=== PATIENT | female | born 1990 | race Caucasian/White ===

== ENCOUNTER 2022-08-04 13:17 | Emergency (ER) | payer OTHER, SELFPAY ==
[2022-08-04 13:55] VITALS: BP 116/74; PULSE 74; RESP 18; TEMP 36.7; O2SAT 99; BMI 33.0
--- NOTE | 2022-08-04 13:55 | ED.GENADULT ---
HPI - General Adult General Chief complaint: Skin/Abscess/Foreign Body Stated complaint: Rash Time Seen by Provider: 08/04/22 14:00 Source: patient Mode of arrival: ambulatory Limitations: no limitations History of Present Illness HPI narrative: 31 yo female presents to the ER for evaluation of an itchy rash all over her body that she noticed this week. She presents with her mother who has had a similar rash for the last 3 weeks and it is self resolving. patient denies any new soaps, lotions, detergents. No fever, chills. No one else in the home has the rash besides her mother. she has not taken any medications or used any creams to the rash. complaint: rash Onset (ago): week(s) Quality: other (itching) Pain Consistency: constant Exacerbating factors: other (itching) Associated symptoms: denies other symptoms Treatments prior to arrival: none Related Data Previous Rx's Medication Instructions Recorded hydrocortisone 2.5 % topical 1 appl topical BID PRN itching 08/04/22 ointment #28.35 grams Allergies Allergy/AdvReac Type Severity Reaction Status Date / Time No Known Allergies Allergy Verified 08/04/22 14:01 Review of Systems Review of Systems: Yes all other systems are reviewed and are negative [facility] Social History Social History Advance Directives: No Advance Directives Information Provided: Yes Physical Exam ED Vital Signs: Vital Signs - 24 hr 08/04/22 13:55 Temperature 98.1 F Pulse Rate 74 Respiratory Rate 18 Blood Pressure 116/74 Pulse Oximetry 99 Oxygen Delivery Method Room Air BMI result Body Mass Index 33.0 Appearance: Alert. Oriented X3. No acute distress. HEENT: normal inspection CVS: Normal heart rate and rhythm. Pulses normal. Respiratory: No respiratory distress. Skin: Skin warm and dry. Normal skin color. Normal skin turgor. No significant rash seen, few small punctate, flat papular lesions 1mm on the LUE. Extremities: normal inspection x4, no joint swelling Neuro: Oriented X 3. No motor deficit. No sensory deficit. Course Course Course Narrative: RME - 31yo female presenting for rash that began 1 week ago on her arms, back, and trunk. States her mother has had a similar rash for 3 weeks which has been improving. Patient has not taken anything for the rash. Denies new lotions, creams, medications, detergents. Endorses pruritis, denies fever. Plan: d/c Medical Decision Making Medical Decision Making MDM Narrative: 31 yo female presenting with itchy rash on the body x1 week. Mother with similar rash that is self resolving. No notable rash on exam, a few excorations present. Will plan to start PRN benadryl and hydrocortisone ointment. Encouraged to refrain from itching and f/u PCP. Stable for d/c home. Differential Diagnosis Differential Diagnoses: The differential diagnosis associated with the presentation includes contact dermatitis, allergic dermatitis, eczema, bed bugs, anxiety Prescription Management I considered prescription management with: Other (hydrocortisone ointment) Critical Care Time Critical Care Time Critical Care Time: No Discharge Plan Discharge Clinical Impression: Dermatitis Patient Disposition: Home, Self-Care Instructions: Dermatitis (ED) Additional Instructions: Recommend 50mg of Benadryl every 6-8 hours as needed for itching Use the Hydrocortisone ointment as needed for itching. Follow up with your primary care doctor. Prescriptions: New hydrocortisone 2.5 % ointment 1 appl topical BID PRN (Reason: itching) Qty: 28.35 0RF Interventions: ED Discharge Assessment Last Done: 08/04/22 14:03 Discharge Date/Time: 08/04/22 14:08
== END 2022-08-04 14:08 | disposition home or self-care (01) ==
LOC: HO.ED 14:06
PROVIDERS: Emergency Provider Emergency Medicine
DX: L30.9 Dermatitis, unspecified (principal)
CPT/HCPCS: 99282; 99283

== ENCOUNTER 2023-02-20 10:40 | Emergency (ER) | payer OTHER, SELFPAY ==
[2023-02-20 11:06] VITALS: BP 122/79; PULSE 73; RESP 18; TEMP 36.8; O2SAT 97; BMI 36.8
--- NOTE | 2023-02-20 11:06 | ED_ITS ---
HPI - General Adult General Chief complaint: Upper Respiratory Symptoms Stated complaint: Cough Chest Heaviness Time Seen by Provider: 02/20/23 11:42 Source: patient Mode of arrival: ambulatory Limitations: no limitations History of Present Illness HPI narrative: Patient is a 32-year-old female presenting to emergency department for evaluation of viral type symptoms. Endorses nasal congestion, productive cough, sore throat, fatigue, nausea, and a few episodes of vomiting that occur after excessive coughing spells over the past 5 days. Last night she experience palpitations and shortness of breath on exertion though denies this currently. Feels progressive worsening of symptoms today which prompted her ED visit. she also endorses urinary frequency, Without dysuria, urgency or hesitancy. but she has been drinking lot of water. Currently she denies fevers, chills, headache, neck pain, neck stiffness, dizziness, lightheadedness, chest pain, dyspnea, orthopnea, abdominal pain, constipation, diarrhea, numbness or tingling of the extremities. Related Data Previous Rx's Medication Instructions Recorded hydrocortisone 2.5 % topical 1 appl topical BID PRN itching 08/04/22 ointment #28.35 grams azithromycin 250 mg tablet See Rx Instructions PO .COMPLEX #6 02/20/23 tabs hydrocodone-homatropine 5 mg-1.5 5 ml PO Q4-6H PRN cough #200 mL 02/20/23 mg/5 mL (5 mL) oral syrup (Hycodan) Allergies Allergy/AdvReac Type Severity Reaction Status Date / Time No Known Allergies Allergy Verified 02/20/23 11:08 Review of Systems 2 Review of Systems: Yes all other systems are reviewed and are negative [facility] Past Medical History Attestation statement: The following information was validated with the patient. Source: old records reviewed Social History Social History Advance Directives: No Advance Directives Information Provided: No Physical Exam ED Vital Signs: Vital Signs - 24 hr 02/20/23 11:06 02/20/23 11:42 Temperature 98.2 F 98.7 F Pulse Rate 73 73 Respiratory Rate 18 16 Blood Pressure 122/79 113/70 Pulse Oximetry 97 100 Oxygen Delivery Method Room Air Room Air BMI result Body Mass Index 36.8 Appearance: Alert.?Oriented to person, place and time. No acute distress.?Normal affect. Eyes: Pupils equal, round and reactive to light.? ENT: Pharynx mildly erythematous, no exudates, no tonsillar hypertrophy, uvula midline, no trismus, no drooling..?? TM normal bilaterally Neck: Normal inspection.? Neck supple.?? No midline cervical lymphadenopathy. CVS: Heart sounds normal. Normal heart rate and rhythm.? Pulses normal.?? Respiratory: No respiratory distress.? Lung sounds clear to auscultation bilaterally?? Abdomen: Soft and non-tender. Normoactive bowel sounds. ?? Skin: Skin warm and dry.? Normal skin color.?? Extremities: No lower extremity edema.? No calf ttp? Neuro: Moves all extremities spontaneously. Sensation intact bilaterally. Ambulates with normal steady gait. Course Course Course Narrative: This is a rapid medical exam: Additional HPI, ROS, PE not included below will be deferred to primary provider. Patient is a 32-year-old female presenting to the ED with complaint of nasal congestion, cough, fatigue, nausea and vomiting which began 5 days ago. States felt as though symptoms were worse today. Last night had palpitations and shortness of breath. Plan: EKG, basic labs, swab for flu/Covid Medical Decision Making Medical Decision Making MDM Narrative: Patient is a 32-year-old female, presenting for evaluation of upper respiratory symptoms. Patient had labs obtained from E provider prior to my assumption of care which I have reviewed, no leukocytosis or left shift, no anemia, overall unremarkable CMP, hCG is negative, COVID/influenza is negative. EKG revealing normal sinus rhythm with ventricular rate of 88, normal WA interval, QTC 454, no ST elevation, no ST depression, no T-wave inversion, based on history and physical examination low clinical suspicion for ACS. Abdominal examination is benign, not consistent with acute abdomen, low suspicion for obstruction, appendicitis, diverticulitis, colitis. urinalysis without evidence of infection, microscopic hematuria present, currently menstruating. PERC negative unlikely pulmonary embolism. Low suspicion for pneumonia. Parents revealing mild erythema, no tonsillar hypertrophy or exudates, not consistent with peritonsillar retropharyngeal abscess, strep a testing negative. Well- appearing, nontoxic, afebrile, no tachycardia or tachypnea/hypoxia. Speaking clear full sentences, ambulatory with steady gait. Suspect viral syndrome, will send prescription for Hycodan to pharmacy, reviewed [facility], no conflicts. Discussed conservative treatment including rest, hydration, Tylenol/ibuprofen as needed for fever and body aches, saline nasal spray, humidifier, [id number] cold medication. Advised to follow-up with primary care provider as needed, discussed reasons to return back to the emergency department. All questions were answered. Patient discharged home in stable condition. Provided with a return to work/school note. Differential Diagnosis Differential Diagnoses: The differential diagnosis associated with the presentation includes (As noted above) Lab Data MDM Lab Attestation statement: I reviewed the patient's lab results. (As noted above) 02/20/23 11:20 02/20/23 11:20 Labs: Lab Results 02/20/23 02/20/23 02/20/23 Range/Units 11:20 13:04 13:05 WBC 9.8 (4.8-10.8) X10*3/uL RBC 4.39 (4.20-5.50) X10*6/uL Hgb 12.1 (12.0-16.0) g/dl Hct 37.9 (37.0-47.0) % MCV 86.3 (80.0-98.0) fL MCH 27.6 (27.0-33.0) pg MCHC 31.9 (31.0-35.0) g/dl RDW 12.1 (11.0-16.0) % Plt Count 276 (160-400) X10*3/uL MPV 9.2 L (9.4-12.3) fL Immature Gran % (Auto) 0.3 (0.0-0.4) % Neut % (Auto) 67.0 (45-73) % Lymph % (Auto) 23.7 (20-40) % [place] % (Auto) 6.3 (2-11) % Eos % (Auto) 2.3 (0-4) % Baso % (Auto) 0.4 (0-2) % Lymph # (Auto) 2.3 (1.2-4.9) X10*3/uL [place] # (Auto) 0.6 (0.1-1.2) X10*3/uL Eos # (Auto) 0.2 (0.0-0.4) X10*3/uL Baso # (Auto) 0.0 (0.0-0.2) X10*3/uL Abs Immat Gran (auto) 0.03 (0.00-0.03) X10*3/uL Absolute Neuts (auto) 6.6 (2.0-8.3) x10*3/uL Absolute Nucleated RBC 0.000 (0.0-0.012) X10*3/uL Nucleated RBC % (auto) 0.0 (0.0-0.2) /100WBC Sodium 139 (135-145) mmol/L Potassium 3.4 (3.3-5.1) mmol/L Chloride 106 (96-108) mmol/L Carbon Dioxide 26 (22-29) mmol/L Anion Gap 10 L (12-20) BUN 9 (9-16) mg/dL Creatinine 0.57 (0.5-1.4) mg/dL Estim Creat Clear Calc 140.6 Estimated GFR > 60 Random Glucose 74 (60-115) mg/dL Calcium 9.0 (8.4-10.2) mg/dL Total Bilirubin 0.4 (0.0-1.0) mg/dL AST 19 (5-31) U/L ALT 13 (0-31) U/L Alkaline Phosphatase 76 (39-117) U/L Total Protein 7.3 (6.5-8.0) g/dL Albumin 3.8 (3.5-5.0) g/dL Beta HCG, Quant < 2 mIU/mL Urine Color Yellow Urine Appearance Cloudy Urine pH 5.5 (5.0-9.0) Ur Specific [place] 1.025 (1.005-1.025) Urine Protein Negative (Neg-Trace) mg/dL Urine Glucose (UA) Negative (Negative) mg/dL Urine Ketones Negative (Negative) mg/dL Urine Blood Large (3+) H (Negative) Urine Nitrite Negative (Negative) Ur Leukocyte Esterase Negative (Negative) Urine RBC >20 H (0-2) /HPF Urine WBC 0-5 (0-5) /HPF Ur Squamous Epith Cells 0-2 (0-2) /HPF Urine Bacteria None Seen (None Seen) Hyaline Casts 0-2 (0-2) /LPF COVID-19 (DANY) Negative (Negative) COVID-19 Clin Com See Note Influenza Type A (ROBERT) Negative (Negative) Influenza Type B (ROBERT) Negative (Negative) Influenza A & B Note See Note S. pyogenes GrpA ROBERT Negative (Negative) Independent Interpretation I performed an independent interpretation of an: EKG (As noted above) External Record Review External record reviewed: Other ([facility]) Prescription Management I considered prescription management with: Other Discharge Plan Discharge Clinical Impression: Bronchitis Patient Disposition: Home, Self-Care Instructions: Acute Bronchitis (ED) Prescriptions: New azithromycin 250 mg tablet See Rx Instructions .ROUTE .COMPLEX Qty: 6 0RF Rx Instructions: For 250 mg dose pack: take 500 mg today (day 1), then 250 mg for 4 days (days 2-5) hydrocodone-homatropine [Hycodan] 5-1.5 mg/5 mL (5 mL) syrup 5 ml PO Q4-6H PRN (Reason: cough) Qty: 200 0RF Rx Instructions: Partial Fill upon patient request. No Action hydrocortisone 2.5 % ointment 1 appl topical BID PRN (Reason: itching) Qty: 28.35 0RF Referrals: Physician,Unknown J [Primary Care Provider] - Stand Alone Forms: Work/School Release Interventions: ED Discharge Assessment Last Done: 02/20/23 14:06 Discharge Date/Time: 02/20/23 14:20
--- NOTE | 2023-02-20 11:08 | ECG_ITS ---
Test Reason : palpitations Blood Pressure : / mmHG Vent. Rate : 088 BPM Atrial Rate : 088 BPM P-R Int : 160 ms QRS Dur : 080 ms QT Int : 376 ms P-R-T Axes : 039 024 015 degrees QTc Int : 454 ms Normal sinus rhythm Normal ECG No previous ECGs available Referred By: Millie Schulte Electronically Signed By:NAYANA LING MD
--- NOTE | 2023-02-20 11:17 | PC.NURSE ---
pt currently in [facility] - tech performing ekg/obtaining labs. will be in [facility] when tasks are completed.
[2023-02-20 11:24] LABS: MANUAL DIFF FLAG NO
[2023-02-20 11:30] LABS: Basophils Percent Auto 0.4 % (0-2); Eosinophils Absolute Auto 0.2 X10*3/uL (0.0-0.4); Eosinophils Percent Auto 2.3 % (0-4); Hematocrit 37.9 % (37.0-47.0); Hemoglobin 12.1 g/dl (12.0-16.0); Imm Gran Abs Auto 0.03 X10*3/uL (0.00-0.03); Imm Gran Pct Auto 0.3 % (0.0-0.4); Lymphocytes Absolute Auto 2.3 X10*3/uL (1.2-4.9); Lymphocytes Percent Auto 23.7 % (20-40); Mean Corpuscular HGB Conc 31.9 g/dl (31.0-35.0); Mean Corpuscular Hemoglobin 27.6 pg (27.0-33.0); Mean Corpuscular Volume 86.3 fL (80.0-98.0); Mean Platelet Volume 9.2 fL (9.4-12.3); Monocytes Absolute Auto 0.6 X10*3/uL (0.1-1.2); Monocytes Percent Auto 6.3 % (2-11); Neutrophils Absolute Auto 6.6 x10*3/uL (2.0-8.3); Platelet Count 276 X10*3/uL (160-400); Red Blood Count 4.39 X10*6/uL (4.20-5.50); Red Cell Distribution Width 12.1 % (11.0-16.0); White Blood Count 9.8 X10*3/uL (4.8-10.8)
[2023-02-20 11:38] LABS: COVID-19 Test Negative (Negative); IDNOW Serial# BCCEAD1C
[2023-02-20 11:39] LABS: IDNOW Serial# 08D9AD1C
[2023-02-20 11:40] LABS: Influenza A Negative (Negative); Influenza B2 Negative (Negative)
[2023-02-20 11:42] VITALS: BP 113/70; PULSE 73; RESP 16; TEMP 37.1; O2SAT 100
[2023-02-20 11:48] LABS: Alanine Aminotransferase 13 U/L (0-31); Albumin Level 3.8 g/dL (3.5-5.0); Alkaline Phosphatase 76 U/L (39-117); Anion Gap 10 (12-20); Aspartate Amino Transferase 19 U/L (5-31); Bilirubin Total 0.4 mg/dL (0.0-1.0); Blood Urea Nitrogen 9 mg/dL (9-16); Carbon Dioxide 26 mmol/L (22-29); Chloride 106 mmol/L (96-108); Creatinine Clr Calc Pharmacy 140.6; Estimated Glomerular Filt Rate > 60; Glucose Random 74 mg/dL (60-115); Potassium 3.4 mmol/L (3.3-5.1); Sodium 139 mmol/L (135-145); Total Protein 7.3 g/dL (6.5-8.0)
[2023-02-20 11:49] LABS: HCG Quantitative < 2 mIU/mL
--- NOTE | 2023-02-20 13:06 | PC.NURSE ---
labs obtained and sent to lab.
[2023-02-20 13:13] LABS: Appearance Urine Cloudy; Color Urine Yellow; Glucose Urine UA Negative (Negative); Leukocyte Esterase Urine Negative (Negative); Nitrite Urine Negative (Negative); PH 5.5 (5.0-9.0); Specific Gravity - Urine 1.025 (1.005-1.025); UMIC TRIGGER UACC YES; Urine Blood Large (3+) (Negative); Urine Ketones Negative (Negative); Urine Protein Negative (Neg-Trace)
[2023-02-20 13:16] LABS: Bacteria Urine None Seen (None Seen); Hyaline Casts Urine 0-2 /LPF (0-2); RBC Urine >20 /HPF (0-2); Squamous Epithelial Cell Urine 0-2 /HPF (0-2); WBC Urine 0-5 /HPF (0-5)
[2023-02-20 13:36] LABS: IDNOW Serial# 08D9AD1C; Strep A Nucleic Acid Negative (Negative)
== END 2023-02-20 14:20 | disposition home or self-care (01) ==
PROVIDERS: Nurse Practitioner Family; Registered Nurse Emergency; Emergency Provider Emergency Medicine
DX: J40 Bronchitis, not specified as acute or chronic (principal); R05.9 Cough, unspecified; R07.89 Other chest pain; R11.2 Nausea with vomiting, unspecified; R00.2 Palpitations; R06.02 Shortness of breath; Z11.52 Encounter for screening for COVID-19; Z20.822 Contact with and (suspected) exposure to COVID-19; Z79.899 Other long term (current) drug therapy
CPT/HCPCS: 80053; 81001; 84702; 85025; 87502; 87635; 87651; 93005; 99283

== ENCOUNTER 2023-03-09 17:59 | Emergency (ER) | payer OTHER, SELFPAY ==
--- NOTE | ~2023-03-09 | XR_ITS ---
EXAMINATION: XR CHEST 2 VIEW CLINICAL INFORMATION: Cough, concern for pneumonia COMPARISON: None TECHNIQUE: PA and lateral views of the chest obtained. FINDINGS: The lungs are clear. There are no pleural effusions. The cardiomediastinal silhouette is normal. XR/XR chest 2V IMPRESSION: No acute cardiopulmonary disease.
[2023-03-09 18:08] VITALS: BP 134/89; PULSE 85; RESP 16; TEMP 36.3; O2SAT 100; BMI 37.1
--- NOTE | 2023-03-09 18:08 | ED.GENADULT ---
HPI - General Adult General Chief complaint: Upper Respiratory Symptoms Stated complaint: dry cough Time Seen by Provider: 03/09/23 20:11 Source: patient, RN notes reviewed and old records reviewed Mode of arrival: ambulatory Limitations: no limitations History of Present Illness HPI narrative: 32-year-old female presents for evaluation of cough. Patient reports that she has had a cough for approximately 3 weeks She was seen here about 2 weeks ago and diagnosed with bronchitis She was prescribed a Z-Tnoo and cough medicine food She states that she did not fill any of the medications. The provider at the time told that it was likely viral so the patient did not feel that she needs the antibiotics Patient states that she has been using DayQuil at home without any improvement in her cough. Her cough is worse at night. She completed nasal congestion Patient denies any fever No fevers or chills Related Data Previous Rx's Medication Instructions Recorded hydrocortisone 2.5 % topical 1 appl topical BID PRN itching 08/04/22 ointment #28.35 grams azithromycin 250 mg tablet See Rx Instructions PO .COMPLEX #6 02/20/23 tabs hydrocodone-homatropine 5 mg-1.5 5 ml PO Q4-6H PRN cough #200 mL 02/20/23 mg/5 mL (5 mL) oral syrup (Hycodan) azithromycin 250 mg tablet See Rx Instructions PO .COMPLEX #6 03/09/23 tabs Allergies Allergy/AdvReac Type Severity Reaction Status Date / Time No Known Allergies Allergy Verified 02/20/23 11:08 Review of Systems Constitutional: Constitutional: Denies chills and Denies fever(s) ENT: Reports nasal congestion, Denies sinus pain, Denies sinus pressure and Denies sore throat Cardiovascular: Cardiovascular: Denies chest pain and Denies dyspnea Respiratory: Respiratory: Reports cough and Denies dyspnea Gastrointestinal: Gastrointestinal: Denies abdominal pain, Denies nausea and Denies vomiting Musculoskeletal: Musculoskeletal: Denies back pain Integumentary/Breasts: Skin/Breast: Denies rash PMFSH Social History Social History Advance Directives: No Advance Directives Information Provided: No Physical Exam ED Vital Signs: Vital Signs - 24 hr 03/09/23 18:08 Temperature 97.4 F Pulse Rate 85 Respiratory Rate 16 Blood Pressure 134/89 Pulse Oximetry 100 Oxygen Delivery Method Room Air BMI result Body Mass Index 37.1 Const General: healthy appearing, comfortable, no acute distress, alert and awake Nutritional Appearance: well nourished Orientation/consciousness: patient oriented x3 HENMT Head: Yes normocephalic and Yes atraumatic Face and sinus: Yes sinuses nontender and Yes face symmetric Eyes Eyelids: Yes eyelids normal Conjunctivae: conjunctivae normal Sclerae: sclerae normal Corneas: corneas normal Pupils: Equal, round and reactive pupils present EOM: EOMs intact bilaterally Neck Neck: Yes full ROM Resp Effort & Inspection: normal respiratory effort, able to speak in complete sentences, no audible wheezes and not labored Auscultation: clear to auscultation bilaterally Cardio Rate: regular rate Rhythm: regular rhythm GI Inspection: No distended Palpation (GI): Soft to palpation, not firm, nontender, no guarding and not rigid Skin General skin exam: elasticity normal Neuro General: patient oriented x3 Cranial nerves: Yes Equal, round and reactive pupils present and Yes Bilaterally intact EOM present Cognition (Neuro): normal cognition Extrem Other: Moving all extremities well without any obvious deformities Course Course Course Narrative: RME performed by Milady Araujo PA-C. Patient is a 32 year old assigned female at presenting to the emergency department with a cough x3 weeks. Imaging and swabs ordered. Patient placed back in the waiting room pending room availability and results. Medical Decision Making Medical Decision Making MDM Narrative: The 32-year-old female presents for evaluation of cough that she has had for 3 weeks. Her viral swab was negative, her chest x-ray was negative, her lungs are clear to auscultation, she is PERC negative. Cough isn't present for 3 weeks, I feel is appropriate to treat with azithromycin for bronchitis. Her cough may be related to postnasal drip and therefore she was encouraged to use an [id number] decongestant. Her vital signs are within limits, she is stable for discharge at this time. The patient also complained of palpitations yesterday but none today. Her EKG did not show any arrhythmia or ectopy. Differential Diagnosis Differential Diagnoses: The differential diagnosis associated with the presentation includes Upper respiratory infection Bronchitis Postnasal drip Sinusitis Pneumonia Lab Data Labs: Lab Results 03/09/23 Range/Units 18:56 Influenza Type A (PCR) NEGATIVE (Negative) Influenza Type B (PCR) NEGATIVE (Negative) RSV RNA Qual (PCR) NEGATIVE (Negative) SARS-CoV-2 RNA (RT-PCR) NEGATIVE (Negative) S. pyogenes GrpA ROBERT Negative (Negative) Independent Interpretation I performed an independent interpretation of an: EKG (Normal sinus rhythm with a rate of 71 beats per minute. No ischemia or ectopy) and Plain X-Ray (No infiltrates) Radiology Impression Discussion of test interpretation with radiology: I have reviewed the radiologist's reading. (No acute cardiopulmonary disease) Discharge Plan Discharge Clinical Impression: Upper respiratory infection Patient Disposition: Home, Self-Care Instructions: Upper Respiratory Infection (ED) Additional Instructions: Take the azithromycin as directed You should also take [id number] Sudafed PE Drink lots of fluids Follow-up with your primary doctor Return for new or worsening symptoms Prescriptions: New azithromycin 250 mg tablet See Rx Instructions .ROUTE .COMPLEX Qty: 6 0RF Rx Instructions: For 250 mg dose pack: take 500 mg today (day 1), then 250 mg for 4 days (days 2-5) No Action hydrocortisone 2.5 % ointment 1 appl topical BID PRN (Reason: itching) Qty: 28.35 0RF azithromycin 250 mg tablet See Rx Instructions .ROUTE .COMPLEX Qty: 6 0RF Rx Instructions: For 250 mg dose pack: take 500 mg today (day 1), then 250 mg for 4 days (days 2-5) hydrocodone-homatropine [Hycodan] 5-1.5 mg/5 mL (5 mL) syrup 5 ml PO Q4-6H PRN (Reason: cough) Qty: 200 0RF Rx Instructions: Partial Fill upon patient request.
--- NOTE | 2023-03-09 18:10 | ECG_ITS ---
Test Reason : PALPITATIONS Blood Pressure : / mmHG Vent. Rate : 071 BPM Atrial Rate : 071 BPM P-R Int : 148 ms QRS Dur : 078 ms QT Int : 418 ms P-R-T Axes : 023 024 016 degrees QTc Int : 454 ms Normal sinus rhythm RSR' or QR pattern in V1 suggests right ventricular conduction delay Otherwise normal ECG When compared with ECG of 20-FEB-2023 11:11, No significant change was found Referred By: Milady Araujo Electronically Signed By:NAYANA LING MD
[2023-03-09 19:14] LABS: IDNOW Serial# 08D9AD1C; Strep A Nucleic Acid Negative (Negative)
[2023-03-09 19:44] LABS: Influenza A PCR NEGATIVE (Negative); Influenza B PCR NEGATIVE (Negative); Resp Syncy Virus RNA Qual PCR NEGATIVE (Negative); SARS COV2 PCR INHOUSE NEGATIVE (Negative)
== END 2023-03-09 21:16 | disposition home or self-care (01) ==
PROVIDERS: Physician Assistant Medical; Emergency Provider Internal Medicine
DX: J06.9 Acute upper respiratory infection, unspecified (principal); R05.9 Cough, unspecified; Z20.822 Contact with and (suspected) exposure to COVID-19; Z20.828 Contact with and (suspected) exposure to other viral communicable diseases
CPT/HCPCS: 0241U; 71046; 87651; 93005; 99283

== ENCOUNTER 2023-09-28 16:29 | Emergency (ER) | payer OTHER, SELFPAY ==
[2023-09-28 16:42] VITALS: BP 137/90; PULSE 90; RESP 18; TEMP 36.5; O2SAT 100; BMI 31.1
--- NOTE | 2023-09-28 16:48 | ED.GENADULT ---
HPI - General Adult General Chief complaint: General Medical Stated complaint: suture removal Time Seen by Provider: 09/28/23 19:12 Source: patient, RN notes reviewed and old records reviewed Mode of arrival: ambulatory Limitations: no limitations History of Present Illness ED Provider: Ranjit AARON narrative: 33-year-old female presents for evaluation of ?suture removal. ? Patient had a liposuction performed in [place] on 09/10/2023 She states she was told to have her sutures removed on September 25, 2 days ago She states that the area has been healing well, she has no pain or drainage from the surgical incision Denies any fevers, chills No other complaints or concerns at this time Patient does state she was diagnosed with a DVT 2 days ago at her PCP office and was started on Eliquis Related Data Previous Rx's ?Medication ?Instructions ?Recorded hydrocortisone 2.5 % topical 1 appl topical BID PRN itching 08/04/22 ointment #28.35 grams azithromycin 250 mg tablet See Rx Instructions PO .COMPLEX #6 02/20/23 tabs hydrocodone-homatropine 5 mg-1.5 5 ml PO Q4-6H PRN cough #200 mL 02/20/23 mg/5 mL (5 mL) oral syrup (Hycodan) azithromycin 250 mg tablet See Rx Instructions PO .COMPLEX #6 03/09/23 tabs Allergies Allergy/AdvReac Type Severity Reaction Status Date / Time No Known Allergies Allergy Verified 09/28/23 16:49 Review of Systems Constitutional: Constitutional: Denies body ache(s), Denies chills and Denies fever(s) Eyes: Eyes: Denies blurry vision ENT: Denies sore throat Cardiovascular: Cardiovascular: Denies chest pain and Denies dyspnea Respiratory: Respiratory: Denies cough and Denies dyspnea Gastrointestinal: Gastrointestinal: Denies abdominal pain Integumentary/Breasts: Skin/Breast: Denies rash PMFSH Social History Social History Advance Directives: No Advance Directives Information Provided: Yes Do you have a plan to hurt others: No Plan Physical Exam ED Vital Signs: Vital Signs - 24 hr 09/28/23 16:42 Temperature 97.7 F Pulse Rate 90 Respiratory Rate 18 Blood Pressure 137/90 H Pulse Oximetry 100 Oxygen Delivery Method Room Air BMI result Body Mass Index 31.1 Const General: healthy appearing, comfortable, no acute distress, alert and awake Nutritional Appearance: well nourished Orientation/consciousness: patient oriented x3 HENMT Head: Yes normocephalic and Yes atraumatic Eyes Eyelids: Yes eyelids normal Conjunctivae: conjunctivae normal Sclerae: sclerae normal Corneas: corneas normal Pupils: Equal, round and reactive pupils present EOM: EOMs intact bilaterally Neck Neck: Yes full ROM Resp Effort & Inspection: normal respiratory effort, able to speak in complete sentences and not labored GI Inspection: No distended Palpation (GI): Soft to palpation, not firm, nontender, no guarding and not rigid Skin Other: Patient has [address] around her umbilicus. There is minimal surrounding granulomatous tissue, no erythema, no drainage. There is no edema, fluctuance or tenderness on exam. General skin exam: elasticity normal Neuro General: patient oriented x3 Cranial nerves: Yes Equal, round and reactive pupils present and Yes Bilaterally intact EOM present Cognition (Neuro): normal cognition Extrem Other: Moving all extremities well without any obvious deformities Course Course Course Narrative: RME performed by Milady Araujo PA-C. Patient is a 33 year old assigned female at presenting to the emergency department for suture removal. Patient states that she had liposuction and a tummy tuck done elsewhere and now needs the sutures removed. Detailed physical exam and review of systems are deferred to the certified surgical first assistant. Patient placed back in the waiting room pending room availability. Medical Decision Making Medical Decision Making MDM Narrative: 10 sutures removed by Laurence Carrero under my direct supervision. There were no complications, incision remains intact, there was no wound dehiscence. Differential Diagnosis Differential Diagnoses: The differential diagnosis associated with the presentation includes Suture removal Laceration Skin tear Liposuction Panniculectomy Discharge Plan Discharge Clinical Impression: Encounter for removal of sutures Patient Disposition: Home, Self-Care Instructions: Stitches Removal (ED) Additional Instructions: You had pen sutures removed from your belly button today Keep the area clean and dry. I recommend that you talk to your primary doctor about getting follow-up with a plastic surgeon Prescriptions: No Action azithromycin 250 mg tablet See Rx Instructions .ROUTE .COMPLEX Qty: 6 0RF Rx Instructions: For 250 mg dose pack: take 500 mg today (day 1), then 250 mg for 4 days (days 2-5) hydrocortisone 2.5 % ointment 1 appl topical BID PRN (Reason: itching) Qty: 28.35 0RF azithromycin 250 mg tablet See Rx Instructions .ROUTE .COMPLEX Qty: 6 0RF Rx Instructions: For 250 mg dose pack: take 500 mg today (day 1), then 250 mg for 4 days (days 2-5) hydrocodone-homatropine [Hycodan] 5-1.5 mg/5 mL (5 mL) syrup 5 ml PO Q4-6H PRN (Reason: cough) Qty: 200 0RF Rx Instructions: Partial Fill upon patient request. Print Language: Greek
[2023-09-28 20:00] VITALS: BP 137/90; PULSE 90; RESP 18; TEMP 36.5; O2SAT 100
--- NOTE | 2023-09-28 20:01 | PC.NURSE ---
assume d c and pt ready for D/C
== END 2023-09-28 20:03 | disposition home or self-care (01) ==
PROVIDERS: Emergency Provider Internal Medicine; PCP Nurse Practitioner Family
DX: Z48.02 Encounter for removal of sutures (principal); Z86.718 Personal history of other venous thrombosis and embolism; Z79.01 Long term (current) use of anticoagulants
CPT/HCPCS: 99282; 99283